=== PATIENT | male | born 2005 | race Two or more races ===

== ENCOUNTER 2023-09-09 07:53 | Emergency (ER) | payer SELFPAY | END 2023-09-09 09:02 | disposition home or self-care (01) | LOC: MW.ED 07:53 | DX: L02.31 Cutaneous abscess of buttock (principal); Z79.899 Other long term (current) drug therapy; Z91.018 Allergy to other foods; Z91.013 Allergy to seafood | CPT/HCPCS: 99283 ==

== ENCOUNTER 2023-09-11 07:52 | Emergency (ER) | payer SELFPAY ==
[2023-09-11] MEDS: Ondansetron 4 MG Tab.DIS PO ONE (08:44)
[2023-09-11] MEDS: HYDROmorphone 1 MG/ML Syringe IM ONE (08:44)
[2023-09-11] MEDS: Lidocaine 2% 5 ML SDV INJECT ONE (08:45)
== END 2023-09-11 09:07 | disposition home or self-care (01) ==
LOC: MW.ED 07:52
DX: L05.01 Pilonidal cyst with abscess (principal); Z91.018 Allergy to other foods; Z91.013 Allergy to seafood; Z79.899 Other long term (current) drug therapy
CPT/HCPCS: 10080; 96372; 99282; A9270; J1170; 99283; J3490

== ENCOUNTER 2024-03-28 14:57 | Emergency (ER) | payer SELFPAY ==
[2024-03-28] MEDS ORDERED: Ondansetron 4 MG Tab.DIS PO ONE (15:49)
== END 2024-03-28 16:28 | disposition left against medical advice (07) ==
LOC: MW.ED 14:57
DX: Z53.21 Procedure and treatment not carried out due to patient leaving prior to being seen by health care provider (principal)